=== PATIENT | female | born 1965 | race Caucasian/White ===

== ENCOUNTER 2024-03-18 14:40 | Emergency (ER) | payer BC ==
[2024-03-18] MEDS: Sodium Chloride 0.9% 10 ML Syringe FLUSH PRN (15:01)
[2024-03-18] MEDS: diphenhydrAMINE 50 MG/ML SDV IVPUSH ONE (15:02)
[2024-03-18] MEDS: HYDROmorphone 0.5 MG/0.5 ML Syringe IVPUSH ONE (15:05)
[2024-03-18] MEDS: LORazepam 2 MG/ML SDV IVPUSH ONE ×2 (15:08→15:30)
[2024-03-18] MEDS: Sodium Chloride 0.9% 1,000 ML IV STA (15:10)
[2024-03-18 15:19] LABS: BASOPHILS PERCENT AUTO 0.4 % (0.0-1.0); EOSINOPHILS PERCENT AUTO 0.2 % (0.0-6.0); HEMATOCRIT 42.1 % (37.0-47.0); HEMOGLOBIN 14.3 gm/dl (12.0-16.0); IMMATURE GRAN ABSOLUTE AUTO 0.04 K/mm3 (0.00-0.05); IMMATURE GRAN PERCENT AUTO 0.4 % (0.0-0.4); LYMPHOCYTES ABSOLUTE AUTO 2.4 K/mm3 (1.0-4.8); LYMPHOCYTES PERCENT AUTO 21.3 % (24.0-44.0); MEAN CORPUSCULAR HEMOGLOBIN 30.6 pg (28.0-32.0); MEAN PLATELET VOLUME 8.9 fl (9.4-12.3); MONOCYTES ABSOLUTE AUTO 0.5 K/mm3 (0.0-0.8); MONOCYTES PERCENT AUTO 4.7 % (0.0-8.0); NEUTROPHILS ABSOLUTE AUTO 8.1 K/mm3 (1.8-7.7); PLATELET COUNT,PLT 336 K/mm3 (150-400); RED BLOOD CELL COUNT 4.68 M/mm3 (4.10-5.30)
[2024-03-18 15:47] LABS: A/G RATIO 1.1 (1-2); ALBUMIN 3.9 g/dl (3.4-5.0); ANION GAP 20.5 (5-15); BILIRUBIN TOTAL 0.8 mg/dL (0.2-1.0); CALCIUM 9.4 mg/dL (8.5-10.1); CREATININE 1.3 mg/dL (0.55-1.02); EST CRCL DRUG DOSING (CG) 37.99 mL/min; MAGNESIUM 1.6 mg/dL (1.8-2.4); POTASSIUM,K 3.5 mEq/L (3.5-5.1); PROTEIN TOTAL,TP 7.4 g/dl (6.4-8.2)
[2024-03-18 16:20] LABS: TSH 0.897 uIU/mL (0.358-3.74)
[2024-03-18] MEDS: Dexamethasone 4 MG/ML SDV IVPUSH ONE (17:38)
[2024-03-18] MEDS: Magnesium Oxide 400 MG Tab PO ONE (17:42)
== END 2024-03-18 17:51 | disposition home or self-care (01) ==
LOC: JD.ED 14:40
DX: G43.909 Migraine, unspecified, not intractable, without status migrainosus (principal); F45.8 Other somatoform disorders; R29.0 Tetany; Z88.5 Allergy status to narcotic agent; Z91.041 Radiographic dye allergy status; Z79.899 Other long term (current) drug therapy
CPT/HCPCS: 36415; 70450; 71045; 80053; 83735; 84443; 84484; 85025; 93005; 93246; 96361; 96374; 96375; 99284; A9270; J1100; J1171; J1200; J2060; J7030